=== PATIENT | female | born 1935 | race Caucasian/White ===

== ENCOUNTER 2016-11-13 15:32 | Emergency (ER) | payer OTHER ==
[~2016-11-13] VITALS: Ht 152.4 cm; Wt 49.9 kg
[2016-11-13 18:31] VITALS: BP 148/76
== END 2016-11-13 18:31 | disposition home or self-care (01) ==
LOC: ER 15:32
DX: S92.351A Displaced fracture of fifth metatarsal bone, right foot, initial encounter for closed fracture (principal); S82.831A Other fracture of upper and lower end of right fibula, initial encounter for closed fracture; Z98.890 Other specified postprocedural states; Z90.710 Acquired absence of both cervix and uterus; E78.5 Hyperlipidemia, unspecified; Z90.49 Acquired absence of other specified parts of digestive tract; Z88.6 Allergy status to analgesic agent; Z88.8 Allergy status to other drugs, medicaments and biological substances; Z88.2 Allergy status to sulfonamides; X58.XXXA Exposure to other specified factors, initial encounter; Y93.01 Activity, walking, marching and hiking; Y92.89 Other specified places as the place of occurrence of the external cause; Y99.8 Other external cause status
CPT/HCPCS: 50938

== ENCOUNTER 2017-03-13 13:05 | Emergency (ER) | payer OTHER ==
[~2017-03-13] VITALS: Ht 144.8 cm; Wt 45.4 kg
[2017-03-13] MEDS ORDERED: ARICEPT 5 MG TAB5 MG PO (14:32)
[2017-03-13] MEDS ORDERED: VITAMIN D 5050000 I1 PO (14:33)
[2017-03-13] MEDS ORDERED: PRAVACHOL20 MG PO (14:33)
[2017-03-13] MEDS ORDERED: CELEXA10 MG PO (14:33)
[2017-03-13] MEDS ORDERED: NORCO 5-325 TA1 EACH PO (14:58)
[2017-03-13 16:37] VITALS: BP 162/76
== END 2017-03-13 16:41 | disposition home or self-care (01) ==
LOC: ER 13:05
DX: S52.502A Unspecified fracture of the lower end of left radius, initial encounter for closed fracture (principal); E78.00 Pure hypercholesterolemia, unspecified; Z90.89 Acquired absence of other organs; Z90.710 Acquired absence of both cervix and uterus; Z90.49 Acquired absence of other specified parts of digestive tract; Z88.5 Allergy status to narcotic agent; Z88.8 Allergy status to other drugs, medicaments and biological substances; X50.1XXA Overexertion from prolonged static or awkward postures, initial encounter; Y93.89 Activity, other specified; Y92.89 Other specified places as the place of occurrence of the external cause; Y99.8 Other external cause status

== ENCOUNTER 2018-02-23 16:54 | Emergency (ER) | payer OTHER ==
[~2018-02-23] VITALS: Ht 144.8 cm; Wt 59.0 kg
[~2018-02-23 16:54] MED LIST: ARICEPT 5 MG TAB5 MG PO; CELEXA10 MG PO; NORCO 5-325 TA1 EACH PO; PRAVACHOL20 MG PO; VITAMIN D 5050000 I1 PO
[2018-02-23 17:18] VITALS: BP 164/70
[2018-02-23] MEDS ORDERED: MOBIC15 MG PO (17:44)
== END 2018-02-23 17:55 | disposition home or self-care (01) ==
LOC: ER 16:54
DX: S20.219A Contusion of unspecified front wall of thorax, initial encounter (principal); Y04.8XXA Assault by other bodily force, initial encounter; Y93.89 Activity, other specified; Y92.89 Other specified places as the place of occurrence of the external cause; Y99.8 Other external cause status; E78.00 Pure hypercholesterolemia, unspecified; Z90.49 Acquired absence of other specified parts of digestive tract; Z90.710 Acquired absence of both cervix and uterus

== ENCOUNTER 2019-11-30 17:19 | Inpatient (IN) | payer OTHER ==
[~2019-11-30] VITALS: Ht 152.4 cm; Wt 47.9 kg
[~2019-11-30 17:19] MED LIST changes: +MOBIC15 MG PO
[2019-11-30 20:18] LABS: ABSOLUTE NEUTROPHILS 6.8 thou/uL (1.4-8.2); BASOPHILS 1.2 % (0.0-2.0); EOSINOPHILS 1.1 % (0.0-3.0); HEMATOCRIT 34.2 % (37.0-47.0); HEMOGLOBIN 11.5 gm/dL (12.0-15.0); LYMPHOCYTES 22.6 % (24.0-44.0); MCH 30.6 pg (26.0-34.0); MCHC 33.8 g/dL (28.0-37.0); MCV 90.6 fL (80.0-100.0); MONOCYTES 6.3 % (1.0-8.0); PLATELET COUNT 458 thou/uL (150-400); POLYS 68.8 % (36.0-66.0); RBC 3.77 mil/uL (4.20-5.00); RDW 14.7 % (10.5-14.5); WBC 9.8 thou/uL (4.0-11.0)
[2019-11-30 20:31] LABS: ALBUMIN 3.3 g/dL (3.4-5.0); CALCIUM 8.4 mg/dL (8.5-10.1); CREATININE 1.1 mg/dL (0.6-1.0); TOTAL BILIRUBIN 0.4 mg/dL (<0.1-1.0); TOTAL PROTEIN 7.9 g/dL (6.4-8.2)
[2019-11-30 20:34] LABS: URINE BILIRUBIN NEGATIVE (Negative); URINE BLOOD TRACE (Negative); URINE CLARITY CLEAR; URINE COLOR YELLOW; URINE GLUCOSE-RANDOM* NEGATIVE (Negative); URINE KETONES TRACE (Negative); URINE LEUKOCYTES-REFLEX NEGATIVE (Negative); URINE NITRITE-REFLEX NEGATIVE (Negative); URINE PROTEIN (DIPSTICK) TRACE (Negative); URINE UROBILINOGEN 0.2 E.U./dl (0.2-1.0)
[2019-11-30 20:34] LABS: POTASSIUM 2.8 mmol/L (3.5-5.1)
[2019-11-30] MEDS ORDERED: TYLENOL325 M1 PO (22:19)
[2019-11-30] MEDS ORDERED: ARICEPT10 M1 PO (22:20)
[2019-11-30] MEDS ORDERED: LISINOPRIL2.5 MG PO (22:22)
[2019-11-30] MEDS ORDERED: MEMANTINE HCL10 MG PO (22:23)
[2019-11-30] MEDS ORDERED: K-DUR 20 MEQ T20 MEQ PO (22:24)
[2019-11-30] MEDS ORDERED: PRAVASTATIN SOD20 MG PO (22:25)
[2019-11-30] MEDS ORDERED: RIVASTIGMINE1 EACH TRANSDERM (22:27)
[2019-11-30] MEDS ORDERED: MIRALAX119 GM PO (22:28)
[2019-11-30] MEDS ORDERED: DESYREL150 MG PO (22:29)
[2019-11-30 23:51] VITALS: BP 173/74
[2019-12-01 00:05] VITALS: BP 154/54
[2019-12-01] MEDS ORDERED: TRAZODONE HCL50 MG PO (00:40)
[2019-12-01] MEDS ORDERED: EXELON1 EACH TRANSDERM (00:41)
[2019-12-01] MEDS ORDERED: MIRALAX119 GM PO (00:41)
[2019-12-01] MEDS ORDERED: NAMENDA 10 MG T10 MG PO (00:42)
[2019-12-01] MEDS ORDERED: COLACE100 MG PO (00:43)
[2019-12-01] MEDS ORDERED: ABILIFY 2 MG2 M1 PO (00:44)
[2019-12-01] MEDS ORDERED: TYLENOL325 MG PO (00:47)
--- NOTE | 2019-12-01 03:23 | NUR ---
Patient admitted from [facility] ED with the diagnosis of dementia with behavioral disturbances under the care of Dr. Smith. Patient was sent to [facility] ED for evaluation from [facility] due to increased aggression, anxiety, confusion, irritability and wandering. Per shelter records, patient has been verbally threatening to staff and peers, stating she is going to smack them, kill them, punch them. Has been wandering the unit pilfering and moving personal items of others. Patient has also been hyperverbal repeating "Manuel loves us, the Bible tells us so". Difficult to re-direct. When asked questions, she has difficulty answering and will repeat "Manuel loves us, Amen, Amen" over and over. Appears that patient was evaluated in [facility] ED on 11/16/19 when she was diagnosed with a UTI and sent back to nursing facility. Appears that patient has had worsening of these symptoms for the last 3 months. Patient was discharged from [facility] on 09/21/19. Patient is followed by Dr. Barrios for PCP. Spoke with Dr. Simon this shift who is covering for Dr. Barrios. Orders obtained to address hypokalemia. Labs to be repeated in the AM. Currently replacing K+ orally. Patient arrived from ED, appears tired but is able to answer simple yes/no questions. Requires re-direction and staff to repeat self due to her repeating her phrase over and over, "Manuel loves us, the Bible tells us so, amen, amen". No physical or verbal aggression observed. Patient answers to name. When asked current time, location and situation, patient appears perplexed and states "I don't know". Denies pain or discomfort. Easily agitated and irritable during nursing assessment. Patient incontinent of bladder, currently wearing brief. Patient has also been refusing medications and assist with ADLs such as toileting needs. Last known fall was 11/05/19. No known injury sustained. Currently DNR status, Regular diet. DPOA paperwork in chart. Spoke with daughter, Johanna Heller, RAEGAN to receive verbal consent. Johanna also notified about visiting hours, confidential code and unit procedures. Patient did receive Geodon IM while in ED and has been able to rest fairly well after settling into her room. Patient was restless and pacing about her room when she first arrived to the unit and required assistance back to bed. Denies SI/HI/AH/VH. Denies anxiety or depression. Patient did become quite agitated and starting yelling/cursing when a male nurse walked into her room to introduce himself. She started to demand "that man needs to get out of here!". Oddly though, another male nurse cared for her in the ED which didn't seem to pose any problems. Reading through medical record shows that [facility] found more appropriate placement in [place], [place] for this patient and was to be discharged to that facility on 12/03/19. [facility] notified that patient has been admitted for eval and tx. Medication and admission orders obtained and noted. During skin assessment, no open areas observed. Patient does have rather long, discolored toenails. Appears weight has been stable over the last 30 days. Facility reports that patient has been declining to sit and eat more than a couple bites of meals. Patient also had to be moved to a private room recently due to threatening behaviors towards peers.
[2019-12-01 07:00] VITALS: BP 111/54; BP 113/71
--- NOTE | 2019-12-01 10:01 | NUR ---
ASSUMED CARE AT 0700 THIS MORNING. PATIENT IN BED. SHE GOT UP WHEN ASKED TO BY STAFF. SHE REFUSED MEDICATIONS, SPITTING THEM DOWN THE HALLWAY. SHE WAS BELIGERENT WITH STAFF,THREATING TO "KNOW YOUR GOD DAMN HEAD OFF" . ZYPREXIA IM GIVEN. SHE THEN SAT IN THE DINING ROOM,QUIETLY AFTER THE SHOT, OR WALKING IN THE JACOBS. DID NOT EAT MUCH OF BREAKFAST. SHE KEPT PUSHEING THE TRAY AWAY.
[2019-12-01 11:08] LABS: CALCIUM 8.8 mg/dL (8.5-10.1); CREATININE 1.2 mg/dL (0.6-1.0)
[2019-12-01 12:22] VITALS: BP 111/54
--- NOTE | 2019-12-01 13:40 | EKG ---
[facility] [place] [address] ELECTROCARDIOGRAM REPORT Name: VAL GOLDSMITH Room #: 527A-A ADM IN M.R.#: [id number] Admission: 11/30/19 Attend Phys: Faby Smith MD Discharge: Date of : 33 Report #: [id number] THIS REPORT FOR: cc: Saleem Zavala MD, Kirk D. MD Couchonnal, Luis F. 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 : 1935 Requested By: Ricky Caicedo Order Number: [id number] MD: Robson Bell Measurements Intervals [place] Rate: 75 P: 18 NE: 183 QRS: 28 QRSD: 90 T: 55 QT: 409 QTc: 457 Interpretive Statements Sinus rhythm Borderline T abnormalities, anterior leads Compared to ECG 11/15/2007 13:17:54 T-wave abnormality now present Right-axis deviation no longer present Electronically Signed On 12-01-2019 13:39:37 PREPARING BOX TENDER by Robson Bell [email or web address] <ELECTRONICALLY SIGNED> By: Robson Bell MD 12/01/19 [id number] Robson Bell MD /EPI
--- NOTE | 2019-12-01 16:55 | NUR ---
SW attempted to complete assessment with Pt. However this attempt was unsucessful due to Pt only oriented to self. Sw was able to complete the assessment with Pt's daughter/ DPOA, Johanna Heller, via phone at [phone]. Pt does have a new placement on a memory care unit at [facility] in [place], [place].
[2019-12-01 21:09] LABS: CALCIUM 8.7 mg/dL (8.5-10.1); POTASSIUM 3.4 mmol/L (3.5-5.1)
[2019-12-01 21:15] VITALS: BP 137/55
[2019-12-01 22:03] LABS: FOLIC ACID 14.7 ng/mL (8.6-58.9); TSH 1.152 uIU/mL (0.358-3.740)
--- NOTE | 2019-12-02 00:40 | NUR ---
Care assumed of patient at 1915: Patient wandering about the halls at the start of shift. Attempted to open any door she came across including locked doors. Needed to re-direction to leave peers rooms several times. Patient went into another peers room, shut the door and fell asleep in a bed. Needed re-direction back to her own bed. Patient labile, easily agitated. Did make verbal threats while attempting to re-direct her. Patient stated "I'm gonna punch you" and "I'm going to kill you". Once she stood up and started to walk to her room, patient was then sweet as can be, thanking staff, "you're so sweet", "you take such good care of me". Attempted to assist patient to the bathroom before getting into bed. Patient started to hold her fists up and yell again so patient was just assisted to bed. No episode of incontinence observed thus far this shift. Patient allowed lab to draw her blood with assist x2. Patient alert and oriented to person only. Confused and forgetful. Required simple one step directions while taking HS medication. Kept trying to put the pills in the cup of water instead of putting the pill in her mouth. Patient restless, once she went to bed but was eventually able to fall to sleep and has been resting quietly since. Perplexed/suspicious look. Denies SI/HI/AH/VH. No delusional or paranoia behaviors observed. Denies pain or discomfort.
[2019-12-02 05:58] LABS: CALCIUM 8.3 mg/dL (8.5-10.1); CREATININE 0.9 mg/dL (0.6-1.0); POTASSIUM 3.3 mmol/L (3.5-5.1)
[2019-12-02 07:38] VITALS: BP 116/46
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
[2019-12-02 11:00] VITALS: BP 116/46
--- NOTE | 2019-12-02 14:01 | NUR ---
Assumed care of patient this am. Patient is very intrusive. Patient states "Manuel loves you, the Bible tells me so" as well the patient states that she is going to kill people. Patients affect is flat. Patient denies SI. Patient does speak of homicidal ideations. Patient is difficult to redirect. Patient ambulates with out assistance. Patient given a prn medication to help with negative behaviors. Will continue to monitor.
--- NOTE | 2019-12-03 01:56 | NUR ---
Assumed care on 12/02/19 @ 19:15, in the day room ambulating ad marti through the hallways and day room. Hyperverbal, Labile mood noted. When spoken to by staff, or peers, repeats, Manuel Loves You, The Bible Tells Me So, and Amen, Amen, Amen. Then follow up saying, I'm going to kill you. Incontinent of bowel & bladder. Refused to toilet @ HS, brief soaked in urine and bm. Unhappy with incontinent care, however did allow herself to be given incontinent care, but under protest. Intrusive into other peers personal space, and pushing peers wheelchair. Upper extremities noted to be blue on fingertips. Took meds one at a time with water, however tried to put the tablet in her cup of water. Needed step by step direction to take meds. In bed, with eyes closed, respirations even and unlabored, bed in low position, bed alarm set.
[2019-12-03 06:45] LABS: CALCIUM 8.3 mg/dL (8.5-10.1); CREATININE 1.3 mg/dL (0.6-1.0)
--- NOTE | 2019-12-03 07:30 | NUR ---
Assumed care of patient this am. Patient denies si. Patient occasionally states that she will kill someone. Patients affect is flat. Patient is less intrusive today. Patient denies pain. Patient ambulates without assistance. Patient takes medications best crushed in pudding. Moderate effort is needed to redirect patient. Patient states repeatedly that "Manuel loves us, the Bible says so." Patients assessment shows clear breath sounds, active bowel sounds, and s1 s2 heard with auscultation.
--- NOTE | 2019-12-03 08:22 | NUR ---
SW completed chart review and called [facility] to confirm that pt was going to d/c there and not back to her previous LTC at [facility]. Left a VM with Mansi [phone] and admissions at [facility] [phone]. Started a FAX packet to provide regular updates.
[2019-12-03 08:47] VITALS: BP 124/51
--- NOTE | 2019-12-03 09:01 | NUR ---
ESTELITA called and spoke with andrew smith/jillian [phone] to provide suppoer and phone number. Pt has been accepted at [place] and d/c is expected to be there. Family meeting has been scheduled for 12/05 at 2PM.
[2019-12-03 19:30] VITALS: BP 169/71
--- NOTE | 2019-12-03 23:43 | NUR ---
Care assumed of patient at 1915: Patient pacing/wandering the halls at start of shift. Patient attempting to open all doors. Wandering in and out of peers rooms. Mumbling to herself continuously. As soon as she sees anyone, she speaks loudly "Manuel loves you, the Bible tells us so, Amen, Amen". She has repeated this phrase over and over several times this shift. Patient attempting to lay down in other peers beds, needs re-direction. Incontinent of bowel and bladder. Became verbally aggressive and hostile while torin care was being completed stating "I'm going to knock your teeth out". Patient also verbally aggressive with another peer.
--- NOTE | 2019-12-04 09:55 | NUR ---
Up ambulating t/o unit without s/o distress. Repeatedly stating over and over again, "Manuel loves me, the Bible tells me so." Calm and cooperative, compliant with meds. Independent with eating breakfast. Alert and responds to name but is unable to state where she is, the day or her situation. Some rambling speech. Breath sounds clear t/o, bilaterally equal. Reg HR auscultated. Color pink with brisk capillary refill and palpable peripheral pulses. Brief dry. Active bowel sounds over soft,slightly rounded abdomen. Dried scaly area 1.5 cm on L upper chest. Attending group as this time.
[2019-12-04 10:55] VITALS: BP 159/65
--- NOTE | 2019-12-04 13:48 | NUR ---
Sw sent updates to [facility].
[2019-12-04 15:10] LABS: AMP/METHAMP Negative (Negative); BARBITURATES Negative (Negative); BENZODIAZEPINES Negative (Negative); COCAINE Negative (Negative); METHADONE Negative (Negative); OPIATES Negative (Negative); PCP Negative (Negative)
[2019-12-04 15:56] LABS: URINE BILIRUBIN NEGATIVE (Negative); URINE BLOOD 1+ (Negative); URINE CLARITY CLEAR; URINE COLOR YELLOW; URINE GLUCOSE-RANDOM* NEGATIVE (Negative); URINE KETONES NEGATIVE (Negative); URINE LEUKOCYTES-REFLEX NEGATIVE (Negative); URINE PROTEIN (DIPSTICK) NEGATIVE (Negative); URINE UROBILINOGEN 0.2 E.U./dl (0.2-1.0)
[2019-12-04 15:58] VITALS: BP 168/70
[2019-12-04 15:59] LABS: URINE NITRITE-REFLEX POSITIVE (Negative)
[2019-12-04 16:00] VITALS: BP 166/66
[2019-12-04 16:06] LABS: SQUAMOUS 0-3 Few /LPF (0-3)
[2019-12-04 16:07] LABS: CASTS None Seen /LPF (None Seen); CRYSTALS None Seen /LPF (None Seen); URINE RBC 0-2 Rare /HPF (0-2); URINE WBC-REFLEX 0-5 Rare /HPF (0-5)
[2019-12-04 19:26] VITALS: BP 127/73
[2019-12-04 23:38] VITALS: BP 127/73
--- NOTE | 2019-12-05 00:19 | NUR ---
5 Assumed care of patient. Currently she is walking in the hallways. Gait slow and steady. Pt. is walking and talking with another patient. She is telling the other patient, "I love you". 2099 Pt. took po meds with pudding and swallowing them well. Pt. followed meds with thin liquids without coughing or choking. 2129 Pt. found in wrong room on another patient's bed. She was redirected to her own room and laid down in bed.
--- NOTE | 2019-12-05 00:32 | NUR ---
Pt. currently in bed resting with eyes closed. Respirations even and unlabored. Pt. appears to be sleeping peacefully.
[2019-12-05 07:40] VITALS: BP 158/55
--- NOTE | 2019-12-05 10:32 | NUR ---
0715 ASSUMED CARE OF PATIENT. PATIENT ASLEEP IN BED AT THIS TIME. 0840 PATIENT UP EATING BREAKFAST IN DAY ROOM. MEDICATIONS GIVEN IN APPLESAUCE CRUSHED WITHOUT DIFFICULTY. PATIENT UNABLE TO ANSWER WRITERS QUESTIONS. PATIENT CALM AT THIS TIME DOES VOICE OUT STATING " AMEN AMEN AMEN" MULTIPLE TIMES. NO WANDERING NOTED. WILL CONTINUE TO MONITOR.
--- NOTE | 2019-12-05 15:27 | NUR ---
Sw met with pt's son and [facility] for family meeting. Went over the meds and discussed d/c planning. AMOR reported on pt's behvaiors and that d/c will likely be early next week. Amor also reported that updates had been sent to [facility] . Family satisfied with the care pt is recieving.
--- NOTE | 2019-12-05 17:23 | NUR ---
PATIENT SITTING AT TABLE RAMBLING ON AND ON SAYING THE SAME PHRASE OVER AND OVER. PATIENT CALM YET WHEN TALKING TO PATIENT THE PATIENT WILL STARE AT THE EMISSION SPECIALIST AND NOT SAY A WORD. PATIENT THEN RETURNS TO SAYING PHRASES AGAIN. NO AGGRESSIVNESS OR HOSTILE NOTED.
[2019-12-05 19:31] VITALS: BP 118/47
[2019-12-05 20:04] VITALS: BP 147/82
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
--- NOTE | 2019-12-05 23:37 | NUR ---
1848 RESUMMED CARE FROM DAY SHIFT, PATIENT WAS IN DAY ROOM WANDERING AROUND TALKING RELIGOUS JARGON. PATIENT INTERACTS WITH ONE PATIENT, CONFUSED AND ORIENTED TO SELF. PATIENT TOOK MEDICATION WITHOUT INCIDENCE CRUSHED IN YOGART. PATIENT WENT TO BE EARLY AND IS RESTING COMFORTABLY, PATIENT DENIES SI/HI/AH/VH AT PRESENT. PATIENT BOWEL SOUNDS PRESENT, PATIENT LUNGS CLEAR, NO COMPLAINTS ABOUT PAIN. COOPERATIVE CALM, WILL CONTINUE TO MONITOR PATIENT FOR SAFETY AND BEHAVIORS.
[2019-12-06 06:41] LABS: CALCIUM 8.7 mg/dL (8.5-10.1); CREATININE 0.9 mg/dL (0.6-1.0)
[2019-12-06 06:43] LABS: POTASSIUM 6.3 mmol/L (3.5-5.1)
--- NOTE | 2019-12-06 08:06 | NUR ---
SW completed chart review and pt seems to be making positive gains, less aggressive and compliant with medications. D/C is likely early next week. ESTELITA will send updates to [facility] Tuesday
[2019-12-06 09:09] VITALS: BP 138/71
--- NOTE | 2019-12-06 11:33 | NUR ---
0645 Lab called to notify of K+ of 6.3, states it is slightly hemolyzed. Pt. is also on KCL [address] Mckinnon notified. Ordered Kayexulate PO 60 ml and a repeat K+ at 1400. Pharmacy notified of order. 0715 Sleeping soundly without s/o distress. Awakens easily, initially resistant to assessment and cares. Alert and orientated to name only. No speech or actions suggestive of SI/HI. States "Manuel loves us, yes he does, the Bible tells me so" several times but much less frequently than 2 days ago. Breath sounds clear t/o, bilaterally equal. Reg HR auscultated. Color pink with brisk capillary refill and palpable peripheral pulses +1/+4. Fingertips and toes cool and slightly dusky, rest of skin pink and warm. Brief dry. Active bowel sounds over soft, rounded abdomen. Drying skin lesion per L upper chest, no erythema. Walked out to table with slow, steady gait. Drank 60ml Kayexulate with some encouragement. Was resistant to AM meds. Took meds crushed in apple sauce on 4th approach. 1100 Large, brown formed stool per brief and toilet. Urinated per toilet. Ambulated to day room without diff. Currently sitting in chair sleeping. Dr. Smith here speaking with pt.
[2019-12-06 14:32] LABS: CALCIUM 8.4 mg/dL (8.5-10.1); CREATININE 1.1 mg/dL (0.6-1.0); POTASSIUM 5.4 mmol/L (3.5-5.1)
[2019-12-06 19:36] VITALS: BP 135/55
--- NOTE | 2019-12-07 04:21 | NUR ---
Assumed care of pt @ 1900. Pt calm et cooperative this shift. No behaviors noted as pt went to bed early in shift. Took medications whole without difficulty. Ambulates the halls ad marti with steady gait. VSWNL. Health assessment with no abnormalities at present time. Denies SI/HI. Currently resting in bed with eyes closed. Pt refused lab draw this am. [facility] to [facility]. Will continue to monitor per protocol.
--- NOTE | 2019-12-07 08:15 | NUR ---
Date of Admission: 11/30/19 Date of Activity Therapy Assessment: 12/03/19 Activity Goal: Decrease wandering, appropriate social interactions Initial Goal: 1 Group activity/day Weekly progress towards goal: On track Group participation level: Needs some assistance Behaviors observed: Patient's repeatitive statements have decreased and she has been able to tolerate nearly one group activity per day though participation requires assistance d/t cognition level. Pt enjoys singing and this has been found to distract her during times of frustration or wandering. Plan: No change towards goal
--- NOTE | 2019-12-07 08:40 | NUR ---
Sw completed chart review and pt seems to be improving. D/C is still moving towards early next week. Will send updates to [facility] this PM
[2019-12-07 09:19] VITALS: BP 139/73
[2019-12-07 10:36] LABS: ALBUMIN 3.1 g/dL (3.4-5.0); CALCIUM 8.3 mg/dL (8.5-10.1); TOTAL BILIRUBIN 0.4 mg/dL (<0.1-1.0); TOTAL PROTEIN 7.7 g/dL (6.4-8.2)
[2019-12-07 10:58] LABS: POTASSIUM 4.5 mmol/L (3.5-5.1)
--- NOTE | 2019-12-07 11:35 | NUR ---
0700 ASSUMED CARE OF PATIENT. PATIENT ASLEEP IN BED AT THIS TIME. 0800 PATIENT UP IN DAYROOM FOR BREAKFAST. 0820 MEDICATION TAKEN CRUSHED IN APPLESAUCE WITHOUT DIFFICULTIES. PATIENT TENDS TO TAKE MEDS BETTER WHEN YOU SAY THE WORDS THAT PATIENT CHANTS, EXAMPLE- "AMEN, AMEN AMEN". 1000 PATIENT NOTED TO WANDER HALLWAYS CHANTING "THE BIBLE SAYS SO". PATIENT IS EASILY REDIRECTED. 12PM PATIENT SITTING IN DAYROOM TALKING TO SELF, DENIES NEEDS AT THIS TIME
--- NOTE | 2019-12-07 12:17 | NUR ---
ESTELITA spoke with Johanna CARLIN and reported that pt will likely D/C tuesday. Bhargavi reproted she wanted to speak with Dr Smith about meds. ESTELITA reported this to Dr Smith. ESTELITA also called [facility] to confirm the d/c and contracts administrator took a message and ESTELITA will speak with admissions later today and they will set up transortation.
--- NOTE | 2019-12-07 13:55 | NUR ---
New order receieved from Dr. Smith the order was read back and verified 1) order licensed marine engineer for foot care.
--- NOTE | 2019-12-07 15:09 | NUR ---
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 SIZE TESTER NOTIFIED DR VELASQUEZ AND THE HOSPITALIST WAS CALLED. O2 SATS WERE 88% AT THIS TIME. I COMMUNICATED TO THE STAFF THAT PATIENTS HANDS HAVE BEEN THIS WAY FOR DAYS DUE TO BEING COLD. O2 SATS HAVE BEEN GOOD AND THE DISCOLORATION OF HANDS IS NOTHING NEW. RT CALLED AND RT OBSERVED PATIENT. HANDS WERE WARMED UP AT THIS TIME AND O2 LEVEL RECHECKED AGAIN. O2 SATS 96-97% AFTER HANDS WERE WARMED UP. PATIENT FEET ARE COLD WELL. EAR PROB PROVIDED TO STAFF FOR USE ON PATIENT BY RT. ABG'S CANCELLED DUE TO FINDINGS. WILL CONTINUE TO OBSERVE
--- NOTE | 2019-12-08 02:39 | NUR ---
ASSUMED CARE OF PATIENT ON 12/07/19 AT 1915, PATIENT IS UP AD JIM AND PACING AROUND THE UNIT, UPON ONE TO ONE AND ASSESSMENT WITH PATIENT SHE APPEARS WITH A BLUNTED FLAT AFFECT. SHE CONTINUED TO PACE THROUGH THE UNIT, WHEN APPROACHING PATIENT SHE BECAME RELIGIOUSLY PREOCCUPIED STATING "THE BIBLE TELLS ME TO DO THIS, AMEN AMEN AMEN.' SHE CONTINUED TO REPEAT THIS PHRASE THROUGHOUT THE EVENING. MEDICATION PASS WAS DIFFICULT RELATED TO THIS PREOCCUPATION, THIS NURSE ENCOURAGED PATIENT THAT THE BIBLE WOULD GUIDE HER TO TAKE HER MEDICATION TO STAY HEALTHY. SHE DID COMPLY. SHE DENIED SI HI DOES NOT APPEAR TO BE IN MEDICAL DISTRESS, NOR REPORTED ANY CONCERNS. NURSING WILL MAINTAIN ALL PRECAUTIONS TO ENSURE SAFETY AT ALL TIMES.
[2019-12-08 06:51] LABS: ABSOLUTE NEUTROPHILS 4.2 thou/uL (1.4-8.2); EOSINOPHILS 2.8 % (0.0-3.0); HEMATOCRIT 36.4 % (37.0-47.0); HEMOGLOBIN 11.8 gm/dL (12.0-15.0); LYMPHOCYTES 31.4 % (24.0-44.0); MCHC 32.4 g/dL (28.0-37.0); MCV 92.5 fL (80.0-100.0); PLATELET COUNT 385 thou/uL (150-400); POLYS 55.8 % (36.0-66.0); RBC 3.94 mil/uL (4.20-5.00); RDW 15.4 % (10.5-14.5); WBC 7.5 thou/uL (4.0-11.0)
[2019-12-08 08:15] VITALS: BP 122/63
[2019-12-08 09:29] VITALS: BP 122/63
--- NOTE | 2019-12-08 11:12 | NUR ---
0650 RESUMMED CARE FROM OVERNIGHT SHIFT, PATIENT IN DAY ROOM TALKING WITH PATIENT. PATIENT ATE BREAKFAST REFUSED HER MEDICATION STATING JANETTE DOES NOT WANT HER TO TAKE MEDICATION. PATIENT WAS HITTING AT ME SO I GAVE HER GEODON 10 MG TO HELP WITH AGITATION. PATIENT ON ASSESSMENT LUNGS CLEAR, BOWEL SOUNDS PRESENT, ORIENTED TO SELF. PATIENT DENIES SI/AH/VH AT PRESENT, PATIENT IS VERY HYPERVERBAL REGARDING JANETTE. PATIENT COOPERATIVE WITH SOME TASKS BUT NOT WANTING TO TAKE MEDICATION. WILL CONTINUE TO MONITOR PATIENT FOR SAFETY AND BEHAVIORS.
[2019-12-08 20:29] VITALS: BP 122/47
--- NOTE | 2019-12-09 04:13 | NUR ---
Assumed care of pt @ 1900. Pt calm et cooperative this shift. Pt with pleasant demeanor during assessment et took medications whole without difficulty. Ambulates the halls ad marti with steady gait. VSWNL. Health assessment with no abnormalities at present time. Denies SI/HI. Isolated in room most of shift. Currently resting in bed with eyes closed. Will continue to monitor per protocol.
[2019-12-09 09:17] VITALS: BP 127/60
--- NOTE | 2019-12-09 15:23 | NUR ---
Assumed care at 0700. patient was sleeping for the best part of morning. She would get agitated iuf you tried to wqake her up. The daughter visitied in the morning and she agreed to get up and visit with her. Took her meds whole with no problem. takes one pill at a time. Patient keeps repeating " Manuel said so." patient denies SI/HI. Gets agitated if you ask her to do something but some other times she is pleasantly confused. Will continue with the plan of care.
[2019-12-09 19:33] VITALS: BP 108/67
--- NOTE | 2019-12-10 03:47 | NUR ---
Assumed care of pt @ 1900. Pt calm et cooperative with pleasant demeanor this shift. Pt took medications crushed in pudding without difficulty. Ambulates the halls ad marti with steady gait. Continues to state, "Manuel loves me" in a repetitive manner but can also be affectionate with this creative services writer in stating, "I love you" on occasion. Denies SI/HI. VSWNL. Health assessment with no abnormalities noted at present time. Currently resting in bed with eyes closed. Will continue to monitor per protocol.
[2019-12-10 05:35] LABS: HEMATOCRIT 31.4 % (37.0-47.0); HEMOGLOBIN 10.4 gm/dL (12.0-15.0); MCH 30.6 pg (26.0-34.0); MCHC 33.1 g/dL (28.0-37.0); MCV 92.4 fL (80.0-100.0); RBC 3.39 mil/uL (4.20-5.00); RDW 15.3 % (10.5-14.5); WBC 8.3 thou/uL (4.0-11.0)
[2019-12-10 05:50] LABS: CALCIUM 8.3 mg/dL (8.5-10.1); CREATININE 1.4 mg/dL (0.6-1.0); POTASSIUM 4.4 mmol/L (3.5-5.1)
[2019-12-10 07:36] VITALS: BP 111/66
[2019-12-10 08:37] VITALS: BP 111/66
--- NOTE | 2019-12-10 08:38 | NUR ---
ESTELITA made packet and left it on the chart with phone number for [facility]. Sw completed chart reveiw and pt is ready to d/c today. SW compelted DA 124 C and pt does not need a level II screen. Will fax d/c summary and orders when they are completed by Dr Smith and fax to [phone]. Fax confimration will be added and this packet will be left on chart.
[2019-12-10] MEDS ORDERED: LORAZEPAM 0.50.5 MG PO (10:14)
[2019-12-10] MEDS ORDERED: DEPAKOTE SPRIN125 MG PO ×2 (10:14)
[2019-12-10] MEDS ORDERED: COLACE100 MG PO (10:29)
[2019-12-10] MEDS ORDERED: MIRALAX119 GM PO (10:30)
[2019-12-10] MEDS ORDERED: trazodone PO (10:32)
[2019-12-10] MEDS ORDERED: EXELON1 EACH TRANSDERM (10:33)
[2019-12-10] MEDS ORDERED: PRAVASTATIN SOD20 MG PO (10:33)
[2019-12-10] MEDS ORDERED: NORVASC5 MG PO (10:34)
[2019-12-10] MEDS ORDERED: LISINOPRIL2.5 MG PO (10:34)
[2019-12-10] MEDS ORDERED: TYLENOL325 MG PO (10:35)
--- NOTE | 2019-12-10 11:57 | NUR ---
0710 ASSUMED CARE OF PATIENT. PATIENT IN BED ASLEEP AT THIS TIME. 0800 PATIENT IN DAYROOM EATING BREAKFAST MEDICATIONS TAKEN WITH APPLESAUCE WITHOUT DIFFICULTY. PATIENT CHANTING "JANETTE LOVES YOU AND SHUT UP". PATIENT LACKS EMOTION, NO C/O OF PAIN, UNABLE TO STATE A GOAL FOR THE DAY, NO CONCERNS VOICED, NOTED A DECREASE IN WANDERING. PATIENT SITTING IN CHAIR AFTER BREAKFAST CALM WHILE CONTINUES TO CHANT. 1145 PATIENT DC VIA WC TO TRANSPORT VAN ACCOMPANIED BY STAFF. . PATIENT RETURNING TO [facility]. DPOA (DAUGHTER) NOTIFIED, CONSENT RECIEVED VIA PHONE. DC PACKET GIVEN TO TRANSPORT FOR FACILITY. PATIENT STARTED TO GET VERBALLY AGRESSIVE BUT EASILY REDIRECTED. ATTEMPTED TO NOTIFY FACILITY OF PATIENT IN ROUTE, NO ANSWER. LEFT MESSAGE AT FACILITY.
== END 2019-12-10 11:45 | DRG 884 ==
LOC: ER 17:19 → EROBS 22:17 → SBH 22:17 → EROBS 22:17 → SBH 12-01 00:09
PROVIDERS: Emergency Medicine; Internal Medicine; ADMIT Psychiatry & Neurology Psychiatry
DX: F03.91 Unspecified dementia, unspecified severity, with behavioral disturbance (principal); N39.0 Urinary tract infection, site not specified; E78.00 Pure hypercholesterolemia, unspecified; E87.5 Hyperkalemia; E87.6 Hypokalemia; R45.1 Restlessness and agitation; E78.5 Hyperlipidemia, unspecified; F32.9 Major depressive disorder, single episode, unspecified; M19.90 Unspecified osteoarthritis, unspecified site; I10 Essential (primary) hypertension; Z91.14 Patient's other noncompliance with medication regimen; Z90.89 Acquired absence of other organs; Z90.710 Acquired absence of both cervix and uterus; Z90.49 Acquired absence of other specified parts of digestive tract; Z91.81 History of falling; Z87.01 Personal history of pneumonia (recurrent); Z79.891 Long term (current) use of opiate analgesic; Z79.899 Other long term (current) drug therapy
CPT/HCPCS: 10880